=== PATIENT | male | born 1990 | race Caucasian/White ===

== ENCOUNTER → 2017-02-08 | Outpatient (CLI) | payer OTHER | LOC: LABPAT 11:13 | PROVIDERS: ATTEND Surgery Plastic and Reconstructive Surgery | DX: Z01.818 Encounter for other preprocedural examination (principal) | CPT/HCPCS: 86850; 86900; 86901 ==

== ENCOUNTER 2017-02-10 11:18 | Day surgery (SDC) | payer OTHER ==
[2017-02-06 11:34] VITALS: BMI 26.3
--- NOTE | 2017-02-10 08:55 | P.GSHP ---
History of Present Illness H&P Date: 02/10/17 CHIEF COMPLAINT: Ventral hernia HISTORY OF PRESENT ILLNESS: The patient is a 26-year-old male who presents with a history of swelling and pain along the abdomen from a hernia. Now he presents for surgical intervention. PAST MEDICAL HISTORY: Please see list. PAST SURGICAL HISTORY: Please see list. MEDICATIONS: Please see list. ALLERGIES: Please see list. SOCIAL HISTORY: No illicit drug use FAMILY HISTORY: No reports of Crohn disease or ulcerative colitis. REVIEW OF ORGAN SYSTEMS: CONSTITUTIONAL: No reports of fevers or chills. No reports of weight loss despite prior attempts. GI: Denies any blood in stools or constipation. PHYSICAL EXAM: VITAL SIGNS: Stable GENERAL: Well-developed pleasant male in no acute distress. HEENT: No scleral icterus. Extraocular movements grossly intact. Moist buccal mucosa. NECK: Supple without lymphadenopathy. CHEST: Unlabored respirations. Equal bilateral excursions. CARDIOVASCULAR: Regular rate and rhythm. Distal 2+ pulses. ABDOMEN: Soft, nondistended. Palpable defect of the abdomen. No peritoneal signs. MUSCULOSKELETAL: No clubbing, cyanosis, or edema. ASSESSMENT: 1. Incarcerated ventral hernia. 2. History of subluxation of the spine. PLAN: 1. I have reviewed with him the potential for repair including laparoscopic verses open and robotic assisted laparoscopic repair of incarcerated ventral hernia. 2. Anticipated time off for recovery at minimum of 2 weeks. 3. DVT prophylaxis. 4. Antibiotics prophylaxis. 5. He denies any tobacco use. 6. Risk factors for infection with mesh placement were also reviewed as well. Past Medical History Past Medical History: No Reported History History of Any Multi-Drug Resistant Organisms: None Reported Past Surgical History: Orthopedic Surgery Additional Past Surgical History / Comment(s): oral surgery, surgery nina great toes, Past Anesthesia/Blood Transfusion Reactions: Motion Sickness Past Psychological History: No Psychological Hx Reported Smoking Status: Never smoker Past Alcohol Use History: Daily Past Drug Use History: Marijuana - Past Family History Mother Family Medical History: Cancer Medications and Allergies Home Medications Medication Instructions Recorded Confirmed Type Energy Supplement 1 tab PO DAILY 02/06/17 02/06/17 History Allergies Allergy/AdvReac Type Severity Reaction Status Date / Time No Known Allergies Allergy Verified 02/06/17 11:27
[~2017-02-10 11:18] MED LIST: ACETAMINOPHEN IV (For NPO) 1,000 MG in EMPTY BAG 1 BAG IVPB ONE; BUPIVACAINE LIPOSOME/PF 1.3% 20 ML, BUPIVACAIN-EPI 0.5%-1:200,000 25 ML, SODIUM CHLORID... MISCELLANE ONE; DEXAMETHASONE SOD PHOSPHATE 10 MG/ML 1 ML VIAL IV ONE; HEPARIN SODIUM,PORCINE 5,000 UNIT/ML 1 ML VIAL SQ ONE; HYDROmorphone 1 MG/ML 1 ML SYRINGE IVP PRN; LACTATED RINGERS 1,000 ML IV SCH; MIDAZOLAM 2 MG/2 ML VIAL IV PRN; ONDANSETRON 4 MG/2 ML VIAL IVP ONE; SCOPOLAMINE 1.5MG/72HR PATCH TRANSDERM ONE; ceFAZolin 2 GM in SODIUM CHLORIDE 0.9% 100 ML IVPB ONE
[2017-02-10] MEDS ORDERED: LIDOCAINE 1% 20 ML VIAL (10MG/ML) FOR IV START INTRADERMA ONE ×2 (12:00)
[2017-02-10] MEDS ORDERED: LACTATED RINGERS 1,000 ML IV ONE ×2 (12:02→16:50)
[2017-02-10] MEDS ORDERED: MIDAZOLAM 2 MG/2 ML VIAL ONE (12:55)
[2017-02-10] MEDS ORDERED: NALOXONE 0.4 MG/ML 1 ML VIAL ONE (12:55)
[2017-02-10] MEDS ORDERED: PROPOFOL 10 MG/ML 20 ML VIAL IV ONE (12:55)
[2017-02-10] MEDS ORDERED: LIDOCAINE 1% INJ 10MG/ML (20 ML MDV) ONE (12:55)
[2017-02-10] MEDS ORDERED: SUCCINYLCHOLINE CHLORIDE 100 MG/5 ML SYR IV ONE (12:55)
[2017-02-10] MEDS ORDERED: ROCURONIUM BROMIDE 10 MG/ML 10 ML VIAL IV ONE ×2 (12:55)
[2017-02-10] MEDS ORDERED: fentaNYL (PF) 50 MCG/ML 2 ML AMP ONE (12:55)
[2017-02-10] MEDS ORDERED: NEOSTIGMINE 1 MG/ML 10 ML VIAL ONE (12:55)
[2017-02-10] MEDS ORDERED: GLYCOPYRROLATE 0.2 MG/ML 2 ML VIAL ONE (12:55)
[2017-02-10] MEDS ORDERED: NALOXONE 0.4 MG/ML 1 ML VIAL IV PRN (14:55)
[2017-02-10] MEDS ORDERED: HYDROcodone/APAP 5-325MG 1 EACH TAB PO PRN (14:55)
--- NOTE | 2017-02-10 14:55 | P.OP ---
Date of Procedure: 02/10/17 Description of Procedure: SURGEON: LUIS PHIPPS MD BULLARD OPERATOR: Clarisa Angel. PREOPERATIVE DIAGNOSES: 1. Incarcerated umbilical ventral hernia. 2. Spinal subluxation. 3. Periumbilical pain. POSTOPERATIVE DIAGNOSES: 1. Incarcerated umbilical ventral hernia. 2. Spinal subluxation. 3. Periumbilical pain. 4. Ileus. OPERATION: 1. Robotic-assisted laparoscopic reduction of incarcerated umbilical ventral hernia, 3 cm. 2. Robotic-assisted laparoscopic incarcerated umbilical hernia repair with Bard Ventralight ST mesh 11.4 cm. ANESTHESIA: General with 85 mL Exparel with Sensorcaine, epinephrine and normal saline mixture. ESTIMATED BLOOD LOSS: 5 mL. SPECIMENS: None. COMPLICATIONS: None. INDICATIONS: The patient is a 26-year-old male who presents with acute onset periumbilical pain with incarcerated umbilical hernia. Surgical intervention with laparoscopic versus robotic and open techniques were reviewed. Placement of mesh was also reviewed. Benefits and risks were thoroughly described. Informed consent was obtained. DESCRIPTION OF PROCEDURE: The patient was brought into the operating room and laid in supine position. After general induction, the abdomen had been prepped and draped in standard sterile fashion. Ioban draping was also placed. Prior to incision, a timeout protocol was confirmed with surgical team regarding the patient's name including procedures to be performed. The robot was primed prior to the procedure. A field block using Exparel mixture was placed along the periumbilical area including the proposed port sites. Initial incision was made with an #11 blade along the left upper quadrant. A 0 degree 5 mm laparoscopic trocar entry was performed. Diagnostic laparoscopy demonstrated mild ileus of the small bowel. Along the anterior abdominal wall, a defect was identified along the umbilicus. A 12 mm trocar was placed along the left lateral abdominal wall approximately 12 cm lateral to the lower midline. An 8 mm port was placed along the left lower quadrant under direct localization. The 5-mm port was exchanged for an 8 mm robotic port. Placements of the ports were at 10 to 15 cm from the target anatomy and approximately 10 cm apart. Next, an 11.[address] mesh was entered into abdominal cavity under direct realization with an 0-Prolene suture along the epicenter and along the rough side of the mesh. The [employer] robot was previously primed, prepped and draped then docked along the right side of the patient. I then sat at the robot [employer] SI console where working arms of the robot including Bovie cautery connected to robotic scissors and graspers placed by video library assistant Clarisa Angel. Initial attention was brought to the anterior abdominal wall whereby upon careful observation a small defect of initially about 1-cm was found. Using dissecting grasper as well as scissors connected to electro-Bovie cautery, the peritoneum was scored. Then with downward manual pressure over the abdominal wall provided by the video library assistant, an incarcerated lipoma was delivered from the umbilical ventral hernia. The size of the defect was 3 cm upon measurement. The fascia was cleaned of peritoneal fat to allow for 3 to 5 cm margin. The hernia defect was resected using a vessel sealer. Next, hemostasis was checked with cautery. Since small three defects were found along the umbilicus, the fascial defect was undisturbed. Ventralight ST 11.4 cm, circular mesh was previously prepared along the back table. The rough side of the mesh was placed toward the anterior abdominal wall. The smooth side was placed towards the bowel. A grasping suture along the epicenter using 0 Prolene was brought through the skin by the video library assistant using a Colt Bacon. Starting from 12 o'clock position to the 6 o'clock position, 2-0 V-Loc suture was ran in a peritoneum to fascia to the mesh approach. Similarly another V-Loc stitch was run from 6 o'clock to 12 o'clock completely adhering the mesh to the anterior abdominal wall. A final endoscopic imaging was obtained. All instruments and pneumoperitoneum were evacuated from the abdominal cavity. The [employer] robot was undocked from the patient. I re-scrubbed into the case for closure of incisions. The fascia of the 12-mm port was probed and was closed using 0 Vicryl and Colt Casillas. The incisions were reapproximated using 4-0 Monocryl in an interrupted subcuticular fashion. Dermabond was applied to the skin. Sterile cotton ball was placed along the umbilicus followed by Tegaderm. At the end of the procedure, needle, sponge, and instrument count had been verified correct by tissue recovery technician. The patient was taken to the postanesthesia care unit in stable condition with abdominal binder. FINDINGS: 1. Tongan cheese defect of the umbilicus of 3 separate incarcerated umbilical ventral hernias initial with a combined defect size of 3 cm reduced.
[2017-02-10 15:11] VITALS: RESP 16; TEMP 98
[2017-02-10] MEDS ORDERED: HYDROcodone/APAP 5-325MG 1 EACH TAB PO ONE ×2 (16:51→17:26)
[2017-02-10 18:54] VITALS: BP 130/86; PULSE 87
== END 2017-02-10 19:15 | disposition home or self-care (01) ==
LOC: OR 11:18
PROVIDERS: ATTEND Surgery Plastic and Reconstructive Surgery
DX: K43.6 Other and unspecified ventral hernia with obstruction, without gangrene (principal); K42.0 Umbilical hernia with obstruction, without gangrene; K56.7 Ileus, unspecified; M43.5X Other recurrent vertebral dislocation; F12.90 Cannabis use, unspecified, uncomplicated
CPT/HCPCS: 49653; S2900; 86850; 86900; 86901; 88302

== ENCOUNTER 2018-04-29 22:45 | Emergency (ER) | payer OTHER ==
[2018-04-29 22:49] VITALS: RESP 16
[2018-04-29] MEDS ORDERED: diphenhydrAMINE 50 MG/ML 1 ML VIAL IVP STA (22:52)
[2018-04-29] MEDS ORDERED: FAMOTIDINE 20 MG/2 ML VIAL IV STA (22:54)
[2018-04-29] MEDS ORDERED: methylPREDNISolone SOD SUCCI 125 MG/2 ML VIAL IM ONE (22:54)
[2018-04-29] MEDS ORDERED: methylPREDNISolone SOD SUCCI 125 MG/2 ML VIAL IV STA (22:56)
[2018-04-29] MEDS ORDERED: EPINEPHrine 1 MG/ML 1 ML AMP IM STA ×2 (22:56→23:31)
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
[2018-04-30 01:07] VITALS: BP 133/73; PULSE 102; TEMP 98.5
== END 2018-04-30 01:07 | disposition home or self-care (01) ==
LOC: EC 22:45
DX: T78.3XXA Angioneurotic edema, initial encounter (principal)
CPT/HCPCS: 99284; 96374; 96375 ×2; 96372 ×2; J0171; J1200; J2930

== ENCOUNTER 2019-03-09 02:25 | Emergency (ER) | payer OTHER ==
[2019-03-09 02:40] VITALS: TEMP 98
[2019-03-09] MEDS ORDERED: LIDOCAINE 1% INJ 10MG/ML (20 ML MDV) SQ ONE (02:56)
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
[2019-03-09] MEDS: TOPICAL SKIN ADHESIVE 1 EACH AMP TOPICAL STA ×2 (03:42→03:44)
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
[2019-03-09] MEDS ORDERED: HYDROcodone/APAP 5-325MG 1 EACH TAB PO STA (04:45)
[2019-03-09] MEDS ORDERED: ACET/COD 300 MG/30 MG STARTER PACK 6 TAB BTL PO STA (04:48)
[2019-03-09 04:59] VITALS: BP 133/74; PULSE 89; RESP 18
== END 2019-03-09 04:59 | disposition home or self-care (01) ==
LOC: EC 02:25
DX: S02.32XA Fracture of orbital floor, left side, initial encounter for closed fracture (principal); S01.112A Laceration without foreign body of left eyelid and periocular area, initial encounter; H11.32 Conjunctival hemorrhage, left eye; Y04.0XXA Assault by unarmed brawl or fight, initial encounter; Y93.89 Activity, other specified; Y92.410 Unspecified street and highway as the place of occurrence of the external cause
CPT/HCPCS: 72125; 70486; 70450; 99284; 12011; J2001